=== PATIENT | female | born 1975 | race Caucasian/White ===

== ENCOUNTER → 2019-09-17 | Outpatient (CLI) | payer BC | END | disposition home or self-care (01) | LOC: LAB SHORT 12:32 → LAB 12:32 | PROVIDERS: Nurse Practitioner | DX: Z01.419 Encounter for gynecological examination (general) (routine) without abnormal findings (principal) | CPT/HCPCS: G0145 ==

== ENCOUNTER 2025-06-22 12:21 | Day surgery (SDC) | payer BC ==
[~2025-06-22] VITALS: Ht 167.6 cm; Wt 97.2 kg
[2025-06-22] MEDS ORDERED: Phentermine HCl15 MG (12:38)
[2025-06-22 15:13] VITALS: BP 120/82
== END 2025-06-22 15:09 | disposition home or self-care (01) ==
LOC: ORSCSDS 12:21
PROVIDERS: Surgery
PROC: 0DJD8ZZ Inspection of Lower Intestinal Tract, Via Natural or Artificial Opening Endoscopic (ICD-10-PCS; principal; 2025-06-22 13:45)
DX: Z12.11 Encounter for screening for malignant neoplasm of colon (principal); K59.09 Other constipation; F41.9 Anxiety disorder, unspecified; E78.5 Hyperlipidemia, unspecified; E03.9 Hypothyroidism, unspecified; E66.9 Obesity, unspecified; Z68.34 Body mass index [BMI] 34.0-34.9, adult; Z79.899 Other long term (current) drug therapy
CPT/HCPCS: J2704; J7120

== ENCOUNTER → 2025-07-01 | Outpatient (CLI) | payer BC ==
[~2025-07-01] MED LIST: Phentermine HCl15 MG
== END ==
LOC: LAB SHORT 11:14 → LAB 11:14
PROVIDERS: Advanced Practice Midwife
DX: Z01.419 Encounter for gynecological examination (general) (routine) without abnormal findings (principal)
CPT/HCPCS: 87624; G0145